=== PATIENT | male | born 1950 | race African-American/Black ===

== ENCOUNTER 2017-11-14 02:07 | Emergency (ER) | payer OTHER ==
[~2017-11-14] VITALS: Ht 177.8 cm; Wt 104.0 kg
[2017-11-14] MEDS ORDERED: BACITRACIN ZINC OINT UDPKT TOP ONE (03:00)
[2017-11-14] MEDS ORDERED: LIDOCAINE HCL 1% 20ML VIAL (Pyxis) INJ INFIL ONE (03:00)
[2017-11-14] MEDS ORDERED: LIDOCAINE HCL/PF 1% 2ML VIAL INFIL ONE (03:30)
[2017-11-14] MEDS ORDERED: LIDOCAINE HCL/PF 1% 10 MG/ML 5ML VIAL IJ SCH (03:31)
[2017-11-14] MEDS ORDERED: LIDOCAINE HCL 1% 10 MG/ML 10ML VIAL ONE (03:56)
[2017-11-14] MEDS ORDERED: ACETAMINOPHEN 500MG TABLET PO ONE (05:00)
[2017-11-14 05:45] VITALS: BP 174/89
== END 2017-11-14 06:15 | disposition home or self-care (01) ==
LOC: ER 02:07
DX: S06.899A Other specified intracranial injury with loss of consciousness of unspecified duration, initial encounter (principal); S01.112A Laceration without foreign body of left eyelid and periocular area, initial encounter; F10.229 Alcohol dependence with intoxication, unspecified; G62.9 Polyneuropathy, unspecified; F12.10 Cannabis abuse, uncomplicated; F32.9 Major depressive disorder, single episode, unspecified; Y90.9 Presence of alcohol in blood, level not specified; W01.0XXA Fall on same level from slipping, tripping and stumbling without subsequent striking against object, initial encounter; Y93.89 Activity, other specified; Y92.018 Other place in single-family (private) house as the place of occurrence of the external cause
CPT/HCPCS: 12013; 70450; 72125; 99284; J3490